=== PATIENT | female | born 1965 | race Caucasian/White ===

== ENCOUNTER 2017-06-08 17:56 | Emergency (ER) | payer OTHER ==
[~2017-06-08] VITALS: Ht 162.6 cm; Wt 110.7 kg
--- NOTE | 2017-06-08 18:11 | EKG ---
[address] [address] Test Date: 2017-06-08 Test Time: 18:05:11 Pat Name: MEREDITH DUCKWORTH Department: Room: Gender: F [employer]: BRAYDON : 1965 Requested By: SUBHASH HALL Order Number: [id number] Reading MD: Measurements Intervals [place] Rate: 82 P: 24 PA: 152 QRS: 8 QRSD: 92 T: 18 QT: 406 QTc: 478 Interpretive Statements SINUS RHYTHM PROLONGED QT NO SPECIFIC ECG ABNORMALITIES RI6.01 No previous ECG available for comparison
--- NOTE | 2017-06-08 18:25 | PHYS DOC ---
Adult General Chief Complaint Chief Complaint: CHEST PAIN HPI HPI Patient is a 51 year old F who presents with epigastric pain radiating to her right shoulder blade. Patient states she was at work and developed some indigestion that did not go away and progressively gotten worse. Patient denies vomiting but complains of some nausea. Patient has no cardiac history but is diabetic and takes medication for high blood pressure and high cholesterol. Patient denies a smoking history. Patient states nothing increases or decreases the pain patient describes the pain as a pressure on her chest. Patient denies any fevers. Patient has no other complaints. Review of Systems Review of Systems GEN: Denies fevers, chills, sweats HEENT: Denies blurred vision, sore throat CV: Chest pain RESP: Denies shortness of air, cough GI: Nausea NEURO: Denies confusion, dizziness MSK: Denies weakness, joint pain/swelling All other systems were reviewed and found to be within normal limits, except as documented in this note. Allergies Allergies Allergies Coded Allergies Type Severity Reaction Last Updated Verified levofloxacin Allergy Intermediate rash 06/08/17 Yes loratadine Allergy Intermediate rash 06/08/17 Yes naproxen Allergy Intermediate swell 06/08/17 Yes Physical Exam Physical Exam GEN.: No apparent distress. Alert and oriented. HEENT: Head is normocephalic, atraumatic NECK: Supple. LUNGS: CTAB. HEART: RRR, S1, S2 present. Peripheral pulses intact ABDOMEN: Soft, nontender. Positive bowel sounds. EXTREMITIES: Without any cyanosis. NEUROLOGIC: Normal speech, normal tone PSYCHIATRIC: Normal affect, normal mood. SKIN: No ulcerations Current Patient Data Lab Results Laboratory Tests Test 06/08/17 18:18 White Blood Count 7.4 x10^3/uL Red Blood Count 4.43 x10^6/uL Hemoglobin 13.5 g/dL Hematocrit 38.9 % Mean Corpuscular Volume 88 fL Mean Corpuscular Hemoglobin 31 pg Mean Corpuscular Hemoglobin Concent 35 g/dL Red Cell Distribution Width 14.2 % Platelet Count 141 x10^3/uL Neutrophils (%) (Auto) 62 % Lymphocytes (%) (Auto) 30 % Monocytes (%) (Auto) 6 % Eosinophils (%) (Auto) 2 % Basophils (%) (Auto) 1 % Neutrophils # (Auto) 4.6 x10^3uL Lymphocytes # (Auto) 2.3 x10^3/uL Monocytes # (Auto) 0.4 x10^3/uL Eosinophils # (Auto) 0.1 x10^3/uL Basophils # (Auto) 0.0 x10^3/uL D-Dimer (Ileana) < 0.19 mg/L Sodium Level 140 mmol/L Potassium Level 3.8 mmol/L Chloride Level 102 mmol/L Carbon Dioxide Level 30 mmol/L Anion Gap 8 Blood Urea Nitrogen 19 mg/dL Creatinine 0.8 mg/dL Estimated GFR (Cockcroft-Gault) 75.6 BUN/Creatinine Ratio 24 Glucose Level 314 mg/dL Calcium Level 8.7 mg/dL Total Bilirubin 0.2 mg/dL Aspartate Amino Transf (AST/SGOT) 12 U/L Alanine Aminotransferase (ALT/SGPT) 27 U/L Alkaline Phosphatase 162 U/L Troponin I Quantitative < 0.017 ng/mL Total Protein 7.0 g/dL Albumin 3.7 g/dL Albumin/Globulin Ratio 1.1 Current Medications Medications (Trade) Dose Ordered Sig/Daphne Route PRN Reason Start Time Stop Time Status Last Admin Dose Admin Aspirin (Children'S Aspirin) 324 mg 1X ONCE PO 06/08/17 18:45 06/08/17 18:46 DC 06/08/17 18:56 EKG EKG 1814: Normal sinus rhythm rate of 82 no STEMI[] Radiology/Procedures Radiology/Procedures Chest x-ray NAD[] Course & Med Decision Making Course & Med Decision Making Pertinent Labs and Imaging studies reviewed. (See chart for details) ED course: Patient is seen and examined emergency room cardiac workup was ordered along with a d-dimer and a chest x-ray HEART score=3 On reevaluation patient was updated on lab results and x-ray results. Patient states chest pain has improved. Discussed risk factors with the patient and since she was still having some discomfort in her chest I recommended the patient be admitted the hospital for serial EKGs and troponins. Patient states that she would like to go home understanding all risks including and disability and stated the symptoms get worse she would return for admission. I recommended she follow up with PCP in the next one to 2 days for further cardiac workup. I did make the patient aware of her elevated blood glucose and recommended she talk to her family physician about trending those down below 200. MDM: After reviewing the chart, CC/HPI/PMH, physical exam, [lab results], [ radiological results], I do not believe the patient having a STEMI (HEART score= 3), PE, low suspicion for acute thoracic aortic dissection. I did offer the patient admission the hospital since she was still having persistent symptoms however she declined understanding all the risks. Patient is stable to be discharged recommend short-term follow-up with PCP for further cardiac workup. Additional verbal discharge instructions were provided to the patient and that if symptoms get worse or any new symptoms arise that are worrisome to the patient [he/she] is to return to the emergency room immediately [] Dragon Disclaimer Dragon Disclaimer This electronic medical record was generated, in whole or in part, using a voice recognition dictation system. Departure Departure: Impression: Primary Impression: Chest pain Additional Impressions: Epigastric pain Hyperglycemia Disposition: 01 HOME, SELF-CARE Condition: IMPROVED Referrals: CECILIO RAMON MD (PCP) Patient Instructions: Chest Pain (Nonspecific) Additional Instructions: Please follow-up with your family doctor in the next one to 2 days for further cardiac workup and to treat your elevated blood glucose Problem Qualifiers SUBHASH HALL DO Jun 08, 2017 18:25
[2017-06-08 18:49] LABS: BASO % 1 % (0-3); EOS # 0.1 x10^3/uL (0.0-0.7); EOS % 2 % (0-3); HEMATOCRIT 38.9 % (36.0-47.0); HEMOGLOBIN 13.5 g/dL (12.0-15.5); LYMPH # 2.3 x10^3/uL (1.0-4.8); LYMPH % 30 % (24-48); MEAN CORPUSCULAR HEMOGLOBIN 31 pg (25-35); MEAN CORPUSCULAR HGB CONC 35 g/dL (31-37); MEAN CORPUSCULAR VOLUME 88 fL (79-100); MONO # 0.4 x10^3/uL (0.0-1.1); MONO % 6 % (0-9); NEUT # 4.6 x10^3uL (1.8-7.7); NEUT % 62 % (31-73); PLATELET COUNT 141 x10^3/uL (140-400); RED BLOOD COUNT 4.43 x10^6/uL (3.50-5.40); RED CELL DISTRIBUTION WIDTH 14.2 % (11.5-14.5); WHITE BLOOD COUNT 7.4 x10^3/uL (4.0-11.0)
[2017-06-08 18:50] LABS: ALBUMIN 3.7 g/dL (3.4-5.0); ALBUMIN/GLOBULIN RATIO 1.1 (1.0-1.7); CALCIUM 8.7 mg/dL (8.5-10.1); CREATININE 0.8 mg/dL (0.6-1.0); GFR 75.6; POTASSIUM 3.8 mmol/L (3.5-5.1); TOTAL BILIRUBIN 0.2 mg/dL (0.2-1.0)
[2017-06-08] MEDS: ASPIRIN 81 MG TAB.CHEW PO ONE (18:56)
[2017-06-08 19:19] VITALS: BP 128/75
[2017-06-08 19:32] LABS: BACTERIA,URINE FEW /HPF (0-FEW); BILIRUBIN,URINE NEG (NEG); CLARITY,URINE CLEAR; COLOR,URINE YELLOW; GLUCOSE,URINE >=1000 mg/dL (NEG); NITRITE,URINE NEG (NEG); SQUAMOUS EPITHELIAL CELL,UR MANY /LPF; UROBILINOGEN,URINE 0.2 mg/dL (0.2 mg/dL)
--- NOTE | 2017-06-09 08:08 | RAD ---
Portable AP view CXR: Clinical indications: Chest pain today. Comparison: None available. Findings: No acute lung infiltrate or pleural effusion or pulmonary edema or lung mass or pneumothorax is seen. The heart size, pulmonary vasculature, mediastinum and both gary are unremarkable. Impression: No acute radiographic abnormality is seen.
== END 2017-06-08 19:41 | disposition home or self-care (01) ==
LOC: ER 17:56
DX: R10.13 Epigastric pain (principal); R07.89 Other chest pain; E78.00 Pure hypercholesterolemia, unspecified; R73.9 Hyperglycemia, unspecified; Z88.1 Allergy status to other antibiotic agents; Z88.6 Allergy status to analgesic agent; Z88.8 Allergy status to other drugs, medicaments and biological substances
CPT/HCPCS: 36415; 71045; 80053; 81001; 84484; 85025; 85379; 87086; 93005; 99285-25

== ENCOUNTER 2019-02-02 13:34 | Emergency (ER) | payer OTHER ==
[~2019-02-02] VITALS: Ht 162.6 cm; Wt 108.0 kg
[2019-02-02 14:00] VITALS: BP 152/92
--- NOTE | 2019-02-02 14:29 | RAD ---
Indications: Trauma and pain Three-view right shoulder study: No acute fracture or dislocation or lytic process is evident. No AC joint separation is seen. IMPRESSION: No acute fracture. 2 view study of the right femur: No acute fracture or dislocation or lytic process is seen. IMPRESSION: No acute fracture. Electronically signed by: Denys Naik MD (02/02/2019 2:26 PM) [id number]
--- NOTE | 2019-02-02 15:09 | PHYS DOC ---
Past History Past Medical History: Anxiety, Depression, Diabetes Past Surgical History: Cholecystectomy, Hysterectomy Alcohol Use: None Drug Use: None Adult General Chief Complaint Chief Complaint: MECHANICAL FALL HPI HPI Patient is a 53 over female presenting after a fall at work she fell at [employer]. She tripped. No loss of consciousness did not hit her head no blood thinners complains of right trapezius area pain and right shoulder pain and right femur pain. Review of Systems Review of Systems Constitutional: Denies fever or chills [] Eyes: Denies change in visual acuity, redness, or eye pain [] HENT: Denies nasal congestion or sore throat [] Respiratory: Denies cough or shortness of breath [] Cardiovascular: No additional information not addressed in HPI [] No abdominal pain or chest pain All other systems were reviewed and found to be within normal limits, except as documented in this note. Allergies Allergies Allergies Coded Allergies Type Severity Reaction Last Updated Verified celecoxib Allergy Severe Shortness of Air 02/02/19 Yes levofloxacin Allergy Intermediate rash 06/08/17 Yes loratadine Allergy Intermediate rash 06/08/17 Yes naproxen Allergy Intermediate swell 06/08/17 Yes Physical Exam Physical Exam Constitutional: Well developed, well nourished, no acute distress, non-toxic appearance. [] HENT: Normocephalic, atraumatic, bilateral external ears normal, oropharynx moist, no oral exudates, nose normal. [] Eyes: PERRLA, EOMI, conjunctiva normal, no discharge. [] Neck: Normal range of motion right lateral paraspinous tenderness no focal midline tenderness. Cardiovascular:Heart rate regular rhythm, no murmur [] Lungs & Thorax: Bilateral breath sounds clear to auscultation [] Abdomen: Bowel sounds normal, soft, no tenderness, no masses, no pulsatile masses. [] Skin: Warm, dry, no erythema, no rash. [] Back: No tenderness, no CVA tenderness. [] Extremities: Tenderness to palpation of the right thigh no obvious deformity was identified there is really no tenderness at the knee area it is proximal to that. Range of motion of joints are intact. Right shoulder range of motion is somewhat limited but secondary to pain. Neurologic: Alert and oriented X 3, normal motor function, normal sensory function, no focal deficits noted. [] Psychologic: Affect normal, judgement normal, mood normal. [] Current Patient Data Vital Signs Vital Signs Date Time Temp Pulse Resp B/P (MAP) Pulse Ox O2 Delivery O2 Flow Rate FiO2 02/02/19 14:00 98.9 89 18 96 Room Air Lab Results ess * Moderate Temperature (Fahrenheit): * 98.9 degrees F (97.6-99.5) Patient Temperature * 98.9 degrees F (97.5-99.5) Temperature Source * Oral Blood Pressure Systolic * 152 mm Hg (100-140) H Blood Pressure Diastolic * 92 mm Hg (60-100) Blood Pressure Mean * 112 mm Hg Blood Pressure Location * Left Arm Blood Pressure Source * Automatic Cuff Pulse Rate * 89 beats per minute (60-90) Pulse Assessment Method * Monitor Respiratory Rate * 18 breaths per minute (12-24) Oxygen Delivery Method * Room Air Bedside Pulse Oximetry * 96 % Treatment Prior to Arrival EKG EKG [] Radiology/Procedures Radiology/Procedures [] Course & Med Decision Making Course & Med Decision Making Pertinent Labs and Imaging studies reviewed. (See chart for details) []Femur and shoulder x-ray were negative NO CSPINE imaging needed by nexus. reasured short time off work Dragon Disclaimer Dragon Disclaimer This electronic medical record was generated, in whole or in part, using a voice recognition dictation system. Departure Departure: Impression: Primary Impression: Shoulder pain Disposition: 01 HOME, SELF-CARE Condition: STABLE Patient Instructions: Shoulder Pain, [id number] BEAN ENNIS MD Feb 02, 2019 15:09
== END 2019-02-02 15:35 | disposition home or self-care (01) ==
LOC: ER 13:34
DX: M25.511 Pain in right shoulder (principal); M79.651 Pain in right thigh; E11.9 Type 2 diabetes mellitus without complications; Z88.1 Allergy status to other antibiotic agents; Z88.6 Allergy status to analgesic agent; Z88.8 Allergy status to other drugs, medicaments and biological substances; W01.0XXA Fall on same level from slipping, tripping and stumbling without subsequent striking against object, initial encounter; Y93.89 Activity, other specified; Y92.89 Other specified places as the place of occurrence of the external cause; Y99.0 Civilian activity done for income or pay
CPT/HCPCS: 73030; 73552; 99284

== ENCOUNTER → 2020-11-03 | Outpatient (CLI) | payer OTHER ==
--- NOTE | 2020-11-03 13:20 | RAD ---
EXAMINATION: MG DIGITAL BILAT DIAGNOSTIC MAMMO WITH ANDREW, US BREAST LT History: Left breast pain and lump. Comparison: Screening mammogram 10/20/2017. Technique: Bilateral digital diagnostic mammogram views were obtained. CAD was utilized. 3-D tomosyn thesis images were acquired. Focused ultrasound of the upper-outer left breast was also performed. Findings: Mammogram: Breast Tissue Density B : There are scattered areas of fibroglandular density. There are no dominant masses, suspicious microcalcifications, or architectural distortion. No abnorm ality correlating with the area of palpable concern at 2:30 in the left breast. Ultrasound: There is no abnormality in the area of palpable concern at 2:30 10 cm from the nipple. An intramammary lymph node is seen at 3:00 11 cm the nipple. At 3:00, 6 cm from nipple there is an ovoi d, parallel, circumscribed hypoechoic mass measuring 3 x 4 x 2 mm. No internal vascularity or shadowi ng. IMPRESSION: 1. No mammographic or sonographic abnormality in the area of palpable concern. 2. Incidentally seen, probably benign 4 mm mass at 3:00 6 cm from the nipple. This is likely either a complicated cyst or fibroadenoma. Recommend 6 month follow-up ultrasound of the left breast. BI-RADS category 3: Probably benign. The images were reviewed with computer aided detection. Patient information is entered into the reminder system with a target due date for the next screening mammogram. Mammography is the most sensitive method for finding small breast cancers, but it does not detect the m all and is not a substitute for careful clinical examination. A negative mammogram does not negate a clinically suspicious finding and should not result in delay in biopsying a clinically suspicious a bnormality. "Our facility is accredited by the [employer] Mammography Program." Electronically signed by: May Barroso MD (11/03/2020 1:18 PM) [id number]
== END ==
LOC: MAMMO 08:20
PROVIDERS: ATTEND Family Medicine
DX: N64.4 Mastodynia (principal)
CPT/HCPCS: 76641; 77066; G0279; 77062

== ENCOUNTER 2021-03-16 09:27 | Emergency (ER) | payer OTHER ==
[~2021-03-16] VITALS: Ht 162.6 cm; Wt 103.2 kg
--- NOTE | 2021-03-16 10:34 | PHYS DOC ---
Past History Past Medical History: Anxiety, Depression, Diabetes Past Surgical History: Cholecystectomy, Hysterectomy Smoking: Non-smoker Alcohol Use: None Drug Use: None Adult General Chief Complaint Chief Complaint: ABDOMINAL PAIN HPI HPI Patient is a 55-year-old female presenting today for abdominal pain that has been present since last Friday 03/09. Pain is located in left upper quadrant, sharp and constant in nature, and does not radiate. She currently rates her pain at 9/10 at this moment in time. She also reports nonbloody diarrhea that is green in color, last bowel movement was this morning. Indicates nonbilious vomiting early in the course, but has not had any problems since Tuesday. Movement aggravates the pain. Denies fevers, chills, chest pain, shortness of breath. Denies taking medications since early last week secondary to emesis. Review of Systems Review of Systems Fourteen body systems of review of systems have been reviewed. See HPI for pertinent positives and negative responses, other carty all other systems are negative, non-pertinent or non-contributory Family History Family History Diabetes mellitus, myocardial infarction, CVA, hypertension, colon cancer in her aunt, uterine cancer Allergies Allergies Allergies Coded Allergies Type Severity Reaction Last Updated Verified celecoxib Allergy Severe Shortness of Air 02/02/19 Yes levofloxacin Allergy Intermediate rash 06/08/17 Yes loratadine Allergy Intermediate rash 06/08/17 Yes naproxen Allergy Intermediate swell 06/08/17 Yes NSAIDS (Non-Steroidal Anti-Inflamma Allergy Unknown 03/16/21 Yes Sulfa (Sulfonamide Antibiotics) Allergy Unknown 03/16/21 Yes Tricyclic Compounds Allergy Unknown 03/16/21 Yes duloxetine Allergy Unknown 03/16/21 Yes levonorgestrel Allergy Unknown 03/16/21 Yes Physical Exam Physical Exam Constitutional: Well developed, well nourished, no acute distress, non-toxic appearance. HENT: Normocephalic, atraumatic, bilateral external ears normal, oropharynx moist, no oral exudates, nose normal. Eyes: PERRLA, EOMI, conjunctiva normal, no discharge. Neck: Normal range of motion, no tenderness, supple, no stridor. Cardiovascular: Heart rate regular, sinus rhythm, no murmurs rubs or gallops Lungs & Thorax: Bilateral breath sounds clear to auscultation, decreased air movement in lower lobes Abdomen: Bowel sounds normal, soft, tenderness to palpation and percussion in left upper quadrant, no masses, no pulsatile masses. Nonsurgical abdomen, no peritoneal signs. Voluntary guarding Skin: Warm, dry, no erythema, no rash. Back: No tenderness, no CVA tenderness. Extremities: No tenderness, no cyanosis, no clubbing, ROM intact, no edema. Neurologic: Alert and oriented X 3, grossly normal motor & sensory function, no focal deficits noted. Psychologic: Affect normal, judgement normal, mood normal. Current Patient Data Vital Signs Vital Signs Date Time Temp Pulse Resp B/P (MAP) Pulse Ox O2 Delivery O2 Flow Rate FiO2 03/16/21 10:00 98.1 79 20 157/81 (106) 99 03/16/21 11:11 Room Air Vital Signs Date Time Temp Pulse Resp B/P (MAP) Pulse Ox O2 Delivery O2 Flow Rate FiO2 03/16/21 11:11 20 Room Air 03/16/21 10:00 98.1 79 157/81 (106) 99 Lab Results Laboratory Tests Test 03/16/21 10:15 03/16/21 10:35 Urine Collection Type Unknown Urine Color Yellow Urine Clarity Hazy Urine pH 6.0 Urine Specific [place] 1.020 Urine Protein Trace Urine Glucose (UA) 100 mg/dL Urine Ketones (Stick) Neg mg/dL Urine Blood Neg Urine Nitrite Neg Urine Bilirubin Neg Urine Urobilinogen Dipstick 0.2 mg/dL Urine Leukocyte Esterase Mod Urine RBC 3-5 /HPF Urine WBC 11-20 /HPF Urine Squamous Epithelial Cells Mod /LPF Urine Bacteria 0 /HPF Urine Hyaline Casts Few /HPF Urine Mucus Mod /LPF Urine Opiates Screen Neg Urine Methadone Screen Neg Urine Barbiturates Neg Urine Phencyclidine Screen Neg Urine Amphetamine/Methamphetamine Neg Urine Benzodiazepines Screen Neg Urine Cocaine Screen Neg Urine Cannabinoids Screen Neg Urine Ethyl Alcohol Neg White Blood Count 7.2 x10^3/uL Red Blood Count 4.56 x10^6/uL Hemoglobin 13.8 g/dL Hematocrit 40.0 % Mean Corpuscular Volume 88 fL Mean Corpuscular Hemoglobin 30 pg Mean Corpuscular Hemoglobin Concent 35 g/dL Red Cell Distribution Width 14.3 % Platelet Count 169 x10^3/uL Neutrophils (%) (Auto) 55 % Lymphocytes (%) (Auto) 34 % Monocytes (%) (Auto) 9 % Eosinophils (%) (Auto) 2 % Basophils (%) (Auto) 1 % Neutrophils # (Auto) 3.9 x10^3uL Lymphocytes # (Auto) 2.4 x10^3/uL Monocytes # (Auto) 0.6 x10^3/uL Eosinophils # (Auto) 0.2 x10^3/uL Basophils # (Auto) 0.1 x10^3/uL Sodium Level 138 mmol/L Potassium Level 4.1 mmol/L Chloride Level 99 mmol/L Carbon Dioxide Level 28 mmol/L Anion Gap 11 Blood Urea Nitrogen 15 mg/dL Creatinine 0.8 mg/dL Estimated GFR (Cockcroft-Gault) 74.5 BUN/Creatinine Ratio 19 Glucose Level 283 mg/dL Calcium Level 8.5 mg/dL Total Bilirubin 0.3 mg/dL Aspartate Amino Transf (AST/SGOT) 15 U/L Alanine Aminotransferase (ALT/SGPT) 32 U/L Alkaline Phosphatase 130 U/L Troponin I High Sensitivity 5 ng/L Total Protein 7.1 g/dL Albumin 3.8 g/dL Albumin/Globulin Ratio 1.2 Lipase 48 U/L Current Medications Medications (Trade) Dose Ordered Sig/Daphne Route PRN Reason Start Time Stop Time Status Last Admin Dose Admin Sodium Chloride 1,000 ml @ 1,000 mls/hr 1X ONCE IV 03/16/21 10:45 03/16/21 11:44 DC 03/16/21 11:04 Morphine Sulfate (Morphine 4mg Syringe) 4 mg 1X ONCE IV 03/16/21 10:45 03/16/21 10:50 DC 03/16/21 11:11 Iohexol (Omnipaque 300 Mg/ml) 75 ml 1X ONCE IV 03/16/21 10:45 03/16/21 10:50 DC 03/16/21 11:27 Info (Do NOT chart on this entry -- for MONITORING) 1 each PRN DAILY PRN MC SEE COMMENTS 03/16/21 10:45 03/18/21 10:44 Metoclopramide HCl (Reglan Vial) 10 mg 1X ONCE IVP 03/16/21 11:45 03/16/21 11:46 DC 03/16/21 11:42 EKG EKG EKG ordered and interpreted by myself at 1045 hrs. is sinus rhythm at 77 bpm, prolonged QTC at 491 otherwise unremarkable intervals, no axis deviation, no obvious ischemic findings, no STEMI Radiology/Procedures Radiology/Procedures Exam Date: 03/16/2021 11:[address] ABDOMEN+PELVIS W Indication: Reason: LUQ/left flank pain X 1 WEEK / Spl. Instructions: / History: . TECHNIQUE: CT examination of the abdomen and pelvis was performed following the administration of nonionic intravenous contrast. One or more of the following dose reduction techniques were utilized: *Automated exposure control (AEC) *Adjustment of mA and/or kV according to patient size *Use of iterative reconstruction technique *CT scan done according to ALARA, or ALARA/IMAGE GENTLY FINDINGS: The visualized lung bases are clear. Heart is enlarged without pericardial effusion. Status post cholecystectomy. Intrahepatic and extrahepatic biliary duct dilatation is noted. The liver, gallbladder, spleen, pancreas, adrenal glands and kidneys are normal. Urinary bladder is normal in appearance. There is a moderate fat-containing umbilical hernia. There is a small spigelian hernia on the right containing fat and a small partially herniated portion of the transverse colon consistent with a Mckeon hernia. There is no bowel obstruction or inflammation. The appendix is normal. Minimal atherosclerotic calcifications are seen. No lymphadenopathy or ascites is seen. Degenerative changes are seen in the spine. IMPRESSION: No evidence of acute intra-abdominal pathology. Small Mckeon spigelian hernia on the right containing part of the transverse colon. No bowel obstruction or inflammation. Moderate fat-containing umbilical hernia noted. Electronically signed by: Angel Garcia MD (03/16/2021 11:44 AM) [id number] /////////////////////////////////////// EXAMINATION: XR CHEST 1V CLINICAL HISTORY: UPPER ABDOMINAL PAIN X 1 WEEK EXAM DATE/TIME: 03/16/2021 11:20 AM COMPARISON: None FINDINGS: Lines, Tubes, and Devices: None. Cardiomediastinal Silhouette: Within normal limits. Lungs and Pleura: No evidence of focal airspace consolidation or pleural effusion. Pulmonary vasculature unremarkable. Bones and Soft Tissues: Degenerative changes in the thoracic spine. IMPRESSION: No evidence of acute cardiopulmonary abnormality. Electronically signed by: Joselito Gibson DO (03/16/2021 12:14 PM) [id number] Heart Score C/O Chest Pain: No HEART Score for Chest Pain: HEART Score for Chest Pain Response (Comments) Value History Slighlty/Non-Suspicious 0 ECG Normal 0 Age >45 - < 65 1 Risk Factors 1 or 2 Risk Factors 1 Troponin < Normal Limit 0 Total 2 Risk Factors: Risk Factors: DM, Current or recent (<one month) smoker, HTN, HLP, family history of CAD, obesity. Risk Scores: Risk Factors: DM, Current or recent (<one month) smoker, HTN, HLP, family history of CAD, obesity. Course & Med Decision Making Course & Med Decision Making ABCs unremarkable. I disclosed entirety of ER findings and discussed most likely diagnosis of left upper quadrant abdominal pain, likely due to gastroparesis versus constipation. Other diagnoses were discussed with patient such as ACS, pneumonia, other cardiopulmonary and/or intra-abdominal abnormalities but all deemed less likely causes of patient's presentation. Patient has good access to primary care physician, close outpatient follow-up with new prescription for Reglan and tight glycemic control advised. Plan of care discussed at length with need for close outpatient follow-up to review today's ER visit stressed. Strict return precautions were also discussed at length with good understanding verbalized by patient. Patient voiced understanding and agreement with the plan. Patient knows to come back for repeat evaluation if concerning signs or symptoms present prior to outpatient follow-up. Hemodynamically stable, ambulatory and well-appearing at time of disposition. Dragon Disclaimer Dragon Disclaimer This electronic medical record was generated, in whole or in part, using a voice recognition dictation system. Departure Departure: Impression: Primary Impression: Left upper quadrant abdominal pain Disposition: HOME / SELF CARE / HOMELESS Condition: STABLE Referrals: EFFIE CLAROS MD (PCP) Patient Instructions: Abdominal Pain (Nonspecific) Additional Instructions: You have been evaluated in the Emergency Department today for abdominal pain. Your evaluation was not suggestive of any emergent condition requiring medical intervention at this time. However, some abdominal problems make take more time to appear. Therefore, it is important for you to watch for any new symptoms or worsening of your current condition. Please continue to follow-up with your primary care physician as instructed and discussed need for close outpatient surgery and/or GI consultation Return to the Emergency Department if you experience worsening pain, persistent fevers greater than 100.4, recurrent vomiting, blood in vomit, blood in stool, dark tarry stool, chest pain, difficulty breathing, or any other concerning symptoms. Scripts Metoclopramide Hcl (REGLAN) 10 Mg Tablet 1 TAB PO TID for nausea, #30 TAB 0 Refills before food and bedtime Prov: LUCA QUEVEDO DO 03/16/21 LUCA QUEVEDO DO Mar 16, 2021 10:34
[2021-03-16] MEDS ORDERED: MORPHINE SULFATE 4 MG/ML DISP.SYRIN. IV ONE (10:45)
[2021-03-16] MEDS ORDERED: IV NORMAL SALINE 1,000ML 1,000 ML IV ONE (10:45)
[2021-03-16] MEDS ORDERED: IOHEXOL 300 MG/ML 75 ML VIAL. IV ONE (10:45)
[2021-03-16] MEDS ORDERED: CONTRAST GIVEN. MC PRN (10:45)
[2021-03-16 10:50] LABS: BARBITURATES NEG (NEG); BENZODIAZEPINES NEG (NEG); CANNABINOIDS NEG (NEG); COCAINE NEG (NEG); METHADONE NEG (NEG); OPIATES NEG (NEG); PHENCYCLIDINE NEG (NEG)
[2021-03-16 10:51] LABS: AMPHETAMINE/METHAMPHETAMINE NEG (NEG)
[2021-03-16 11:01] LABS: BASO # 0.1 x10^3/uL (0.0-0.2); BASO % 1 % (0-3); EOS # 0.2 x10^3/uL (0.0-0.7); EOS % 2 % (0-3); HEMOGLOBIN 13.8 g/dL (12.0-15.5); LYMPH # 2.4 x10^3/uL (1.0-4.8); LYMPH % 34 % (24-48); MEAN CORPUSCULAR HEMOGLOBIN 30 pg (25-35); MEAN CORPUSCULAR HGB CONC 35 g/dL (31-37); MEAN CORPUSCULAR VOLUME 88 fL (79-100); MONO # 0.6 x10^3/uL (0.0-1.1); MONO % 9 % (0-9); NEUT # 3.9 x10^3uL (1.8-7.7); NEUT % 55 % (31-73); PLATELET COUNT 169 x10^3/uL (140-400); RED BLOOD COUNT 4.56 x10^6/uL (3.50-5.40); RED CELL DISTRIBUTION WIDTH 14.3 % (11.5-14.5); WHITE BLOOD COUNT 7.2 x10^3/uL (4.0-11.0)
[2021-03-16 11:09] LABS: BACTERIA,URINE 0 /HPF (0-FEW); BILIRUBIN,URINE NEG (NEG); CLARITY,URINE HAZY; COLOR,URINE YELLOW; GLUCOSE,URINE 100 mg/dL (NEG); HYALINE CASTS, URINE FEW /HPF; NITRITE,URINE NEG (NEG); SQUAMOUS EPITHELIAL CELL,UR MOD /LPF; UROBILINOGEN,URINE 0.2 mg/dL (0.2 mg/dL)
[2021-03-16 11:12] LABS: CALCIUM 8.5 mg/dL (8.5-10.1); CREATININE 0.8 mg/dL (0.6-1.0); GFR 74.5; POTASSIUM 4.1 mmol/L (3.5-5.1)
[2021-03-16 11:19] LABS: ALBUMIN 3.8 g/dL (3.4-5.0); ALBUMIN/GLOBULIN RATIO 1.2 (1.0-1.7); TOTAL BILIRUBIN 0.3 mg/dL (0.2-1.0); TOTAL PROTEIN 7.1 g/dL (6.4-8.2)
[2021-03-16] MEDS ORDERED: METOCLOPRAMIDE HCL 10 MG/2 ML VIAL. IVP ONE (11:45)
--- NOTE | 2021-03-16 11:47 | RAD ---
Exam Date: 03/16/2021 11:[address] ABDOMEN+PELVIS W Indication: Reason: LUQ/left flank pain X 1 WEEK / Spl. Instructions: / History: . TECHNIQUE: CT examination of the abdomen and pelvis was performed following the administration of no nionic intravenous contrast. One or more of the following dose reduction techniques were utilized: *Automated exposure control (AEC) *Adjustment of mA and/or kV according to patient size *Use of iterative reconstruction technique *CT scan done according to ALARA, or ALARA/IMAGE GENTLY FINDINGS: The visualized lung bases are clear. Heart is enlarged without pericardial effusion. Status post cholecystectomy. Intrahepatic and extrahepatic biliary duct dilatation is noted. The liver, gallbladder, spleen, pancreas, adrenal glands and kidneys are normal. Urinary bladder is normal in appearance. There is a moderate fat-containing umbilical hernia. There is a small spigelian hernia on the right containing fat and a small partially herniated portion of the transverse colon consistent with a Rich ter hernia. There is no bowel obstruction or inflammation. The appendix is normal. Minimal atherosclerotic calcifications are seen. No lymphadenopathy or ascites is seen. Degenerative changes are seen in the spine. IMPRESSION: No evidence of acute intra-abdominal pathology. Small Mckeon spigelian hernia on the right containing part of the transverse colon. No bowel obstru ction or inflammation. Moderate fat-containing umbilical hernia noted. Electronically signed by: Angel Garcia MD (03/16/2021 11:44 AM) [id number]
--- NOTE | 2021-03-16 12:16 | RAD ---
EXAMINATION: XR CHEST 1V CLINICAL HISTORY: UPPER ABDOMINAL PAIN X 1 WEEK EXAM DATE/TIME: 03/16/2021 11:20 AM COMPARISON: None FINDINGS: Lines, Tubes, and Devices: None. Cardiomediastinal Silhouette: Within normal limits. Lungs and Pleura: No evidence of focal airspace consolidation or pleural effusion. Pulmonary vasculat ure unremarkable. Bones and Soft Tissues: Degenerative changes in the thoracic spine. IMPRESSION: No evidence of acute cardiopulmonary abnormality. Electronically signed by: Joselito Gibson DO (03/16/2021 12:14 PM) [id number]
[2021-03-16] MEDS ORDERED: METO10TA81 PO (12:32)
[2021-03-16 12:36] VITALS: BP 127/75
--- NOTE | 2021-03-16 18:59 | EKG ---
[address] [address] Test Date: 2021-03-16 Test Time: 10:41:57 Pat Name: MEREDITH DUCKWORTH Department: Room: Gender: F Sales Recruiter: JONNY : 1965 Requested By: LUCA QUEVEDO Order Number: [id number] Reading MD: Measurements Intervals [place] Rate: 77 P: 16 [place]: 156 QRS: 4 QRSD: 90 T: 25 QT: 432 QTc: 491 Interpretive Statements SINUS RHYTHM PROLONGED QT NO SPECIFIC ECG ABNORMALITIES RI6.02 No previous ECG available for comparison
== END 2021-03-16 12:44 | disposition home or self-care (01) ==
LOC: ER 09:27
DX: R10.12 Left upper quadrant pain (principal); R19.7 Diarrhea, unspecified; R11.10 Vomiting, unspecified; F41.9 Anxiety disorder, unspecified; F32.9 Major depressive disorder, single episode, unspecified; E11.9 Type 2 diabetes mellitus without complications; Z90.49 Acquired absence of other specified parts of digestive tract; Z90.710 Acquired absence of both cervix and uterus; Z88.2 Allergy status to sulfonamides; Z88.6 Allergy status to analgesic agent; Z88.1 Allergy status to other antibiotic agents; Z88.8 Allergy status to other drugs, medicaments and biological substances
CPT/HCPCS: 36415; 71045; 74177; 80053; 80307; 81001; 83690; 84484; 85025; 87086; 93005; 96361; 96374; 96375; 99285; J2270; J2765; J7030; Q9967; 87077